=== PATIENT | female | born 1940 | race Caucasian/White ===

== ENCOUNTER 2019-12-26 01:35 | Inpatient (IN) ==
[2019-12-26] MEDS ORDERED: Naloxone 0.4 MG/ML INJ IVP PRN (04:05)
[2019-12-26] MEDS ORDERED: Perflutren Lipid Microsphere 1.3 ML in 0.9 % Sodium Chloride 8.7 ML IVP PRN (05:13)
[2019-12-26] MEDS ORDERED: Doxycycline 100 MG in 0.9 % Sodium Chloride Mini Bag 100 ML IVPB SCH (06:00)
[2019-12-26] MEDS ORDERED: Ondansetron ODT 4 MG TAB.RAPDIS SL PRN (06:06)
[2019-12-26] MEDS ORDERED: Acetaminophen 325 MG TABLET PO PRN (06:06)
[2019-12-26 06:53] LABS: INR 1.7; Prothrombin Time 19.1 Seconds (9.4-12.1)
[2019-12-26 07:13] LABS: Basophils % 0.2 %; Hematocrit 35.2 % (35.3-44.9); Hemoglobin 11.5 g/dL (11.5-15.4); Immature Granulocytes % 0.5 % (0-4); Lymphocytes # 0.6 K/mcL (0.6-4.6); Mean Corpuscular HGB Conc 32.7 g/dL (31.6-35.5); Mean Corpuscular Hemoglobin 35.2 pg (28.0-33.3); Mean Corpuscular Volume 107.6 fL (83.0-100.0); Mean Platelet Volume 9.3 fL (9.4-12.4); Monocytes # 2.2 K/mcL (0.0-1.3); Monocytes % 13.8 %; Neutrophils # 13.2 K/mcL (1.6-8.9); Platelet Count 408 K/mcL (140-400); Red Blood Count 3.27 M/mcL (3.82-4.97); Red Cell Distribution Width 12.4 % (11.5-14.5); Segmented Neutrophils % 81.5 %; White Blood Count 16.1 K/mcL (4.3-11.1)
[2019-12-26 07:37] LABS: Calcium 8.4 mg/dL (8.6-10.3); Potassium 4.6 mEq/L (3.5-5.1)
[2019-12-26] MEDS: Metoprolol 100 MG TABLET PO SCH ×2 (07:54→19:23)
[2019-12-26] MEDS: Famotidine 20 MG TABLET PO SCH ×2 (07:54→19:23)
[2019-12-26] MEDS ORDERED: cefTRIAXone 1,000 MG in Water for inj. (sterile) 10 ML IVP SCH (09:00)
[2019-12-26] MEDS ORDERED: Ringers Solution, Lactated 500 ML IVC ONE ×2 (12:30→13:00)
[2019-12-26] MEDS: Ipratropium/Albuterol Neb 3 ML IH SCH ×4 (15:29→23:58)
[2019-12-26] MEDS: Piperacillin/Tazobactam 3.375 GM in 0.9 % Sodium Chloride Mini Bag 100 ML IVPB SCH (16:35)
[2019-12-26] MEDS ORDERED: *HR* Rivaroxaban 10 MG TABLET PO SCH (17:00)
[2019-12-26 17:08] LABS: Bilirubin,Urine Negative (Negative); Blood,Urine Negative (Negative); Clarity,Urine Clear (Clear); Color,Urine Yellow (Yellow); Glucose,Urine (UA) Normal (Normal); Hyaline Casts,Urine Few per lpf (None Seen); Ketones,Urine Negative (Negative); Leukocyte Esterase,Urine Trace (Negative); Nitrite,Urine Negative (Negative); Protein,Urine Trace mg/dL (Neg-Trace); RBC,Urine 0-3 per hpf (0-3); Specific Gravity,Urine 1.015 (1.010-1.025); Squamous Epithelial Cell,Urine Few per hpf (None-Few); Urobilinogen,Urine Normal (Normal)
[2019-12-26] MEDS ORDERED: Mirtazapine 15 MG TABLET PO SCH ×2 (21:00)
[2019-12-27] MEDS: Piperacillin/Tazobactam 3.375 GM in 0.9 % Sodium Chloride Mini Bag 100 ML IVPB SCH ×3 (00:21→21:53)
[2019-12-27] MEDS: Ipratropium/Albuterol Neb 3 ML IH SCH ×3 (04:17→11:34)
[2019-12-27] MEDS ORDERED: *HR* Propofol 200 MG/20 ML VIAL IVP ONE (08:43)
[2019-12-27] MEDS ORDERED: Dexamethasone 4 MG/ML VIAL ONE (08:43)
[2019-12-27] MEDS ORDERED: Lidocaine -MPF 4% 5 ML AMPUL ONE (08:43)
[2019-12-27] MEDS ORDERED: *HR* FentaNYL (PF) 100 MCG/2 ML VIAL ONE (08:43)
[2019-12-27] MEDS ORDERED: Lidocaine -MPF 2% 2 ML VIAL ONE (08:43)
[2019-12-27] MEDS ORDERED: *HR* Rocuronium Bromide 50 MG/5 ML VIAL ONE (08:43)
[2019-12-27] MEDS ORDERED: Ondansetron 4 MG/2 ML VIAL ONE (08:43)
[2019-12-27] MEDS: Famotidine 20 MG TABLET PO SCH ×2 (08:46→19:51)
[2019-12-27] MEDS: Metoprolol 100 MG TABLET PO SCH ×2 (08:46→19:51)
[2019-12-27] MEDS ORDERED: *HR* Vasopressin 20 UNIT/ML VIAL ONE (09:19)
[2019-12-27] MEDS ORDERED: EPHEDrine 50 MG/ML VIAL ONE (09:22)
[2019-12-27] MEDS ORDERED: Albumin Human 5% 12.5 GM/250 ML IV.SOLN ONE ×3 (09:53→13:25)
[2019-12-27] MEDS ORDERED: Famotidine 20 MG/2 ML VIAL ONE (09:58)
[2019-12-27] MEDS ORDERED: Acetaminophen IV 1,000 MG/100 ML INFUS..BTL ONE (09:58)
[2019-12-27] MEDS ORDERED: Lacri-Lube 3.5 GM TUBE ONE (10:01)
[2019-12-27] MEDS ORDERED: *HR* PHENYLEPHRINE 1,000 MCG/10 ML SYRINGE IVP ONE ×3 (10:09→10:47)
[2019-12-27] MEDS ORDERED: Promethazine 6.25 MG in Water for inj. (sterile) 20 ML IVPB PRN (10:23)
[2019-12-27] MEDS ORDERED: *HR* Labetalol 20 MG/4 ML SYRINGE IVP PRN (10:23)
[2019-12-27] MEDS ORDERED: *HR* HYDROmorphone 2 MG TABLET PO PRN (10:23)
[2019-12-27] MEDS ORDERED: Pregabalin 75 MG CAPSULE PO ONE ×2 (10:23→13:04)
[2019-12-27] MEDS: *HR* HYDROmorphone (PF) 1 MG/ML SYRINGE IVP PRN ×3 (11:42→12:10)
[2019-12-27] MEDS: *HR* OxyCODONE Immed Rel 5 MG TABLET PO PRN ×2 (12:07→12:16)
[2019-12-27] MEDS ORDERED: *HR* HYDROcodone/Acet 5/325 mg TABLET PO PRN (13:04)
[2019-12-27] MEDS ORDERED: Perflutren Lipid Microsphere 1.3 ML in 0.9 % Sodium Chloride 8.7 ML IVP PRN (13:04)
[2019-12-27] MEDS ORDERED: Acetaminophen 325 MG TABLET PO PRN (13:04)
[2019-12-27] MEDS ORDERED: 0.9 % Sodium Chloride 1,000 ML IVC SCH ×2 (13:04→17:23)
[2019-12-27] MEDS ORDERED: Naloxone 0.4 MG/ML INJ IVP PRN (13:04)
[2019-12-27] MEDS ORDERED: Ondansetron 4 MG/2 ML VIAL IVP PRN (13:04)
[2019-12-27] MEDS: *HR* Heparin 5,000 UNIT/ML VIAL SQ SCH ×2 (13:28→21:54)
[2019-12-27] MEDS: Albumin Human 5% 12.5 GM/250 ML IV.SOLN IVC SCH ×3 (13:35→15:38)
[2019-12-27] MEDS: Gabapentin 300 MG CAPSULE PO SCH ×2 (15:57→19:52)
[2019-12-27 19:51] LABS: Hematocrit 32.3 % (35.3-44.9); Hemoglobin 10.2 g/dL (11.5-15.4); Mean Corpuscular HGB Conc 31.6 g/dL (31.6-35.5); Mean Corpuscular Hemoglobin 35.4 pg (28.0-33.3); Mean Corpuscular Volume 112.2 fL (83.0-100.0); Mean Platelet Volume 9.4 fL (9.4-12.4); Platelet Count 361 K/mcL (140-400); Red Blood Count 2.88 M/mcL (3.82-4.97); Red Cell Distribution Width 12.7 % (11.5-14.5); White Blood Count 11.9 K/mcL (4.3-11.1)
[2019-12-27] MEDS: Sennosides/Docusate Sodium TABLET PO SCH (19:51)
[2019-12-27] MEDS: *HR* Amiodarone 200 MG TABLET PO SCH ×2 (19:52)
[2019-12-27] MEDS ORDERED: Mirtazapine 15 MG TABLET PO SCH (21:00)
[2019-12-28] MEDS: *HR* Heparin 5,000 UNIT/ML VIAL SQ SCH ×3 (06:00→21:58)
[2019-12-28] MEDS: Piperacillin/Tazobactam 3.375 GM in 0.9 % Sodium Chloride Mini Bag 100 ML IVPB SCH ×3 (06:00→21:58)
[2019-12-28 06:30] LABS: Hematocrit 32.5 % (35.3-44.9); Hemoglobin 10.2 g/dL (11.5-15.4); Mean Corpuscular HGB Conc 31.4 g/dL (31.6-35.5); Mean Corpuscular Hemoglobin 35.9 pg (28.0-33.3); Mean Corpuscular Volume 114.4 fL (83.0-100.0); Mean Platelet Volume 9.7 fL (9.4-12.4); Platelet Count 333 K/mcL (140-400); Red Blood Count 2.84 M/mcL (3.82-4.97); Red Cell Distribution Width 12.7 % (11.5-14.5); White Blood Count 10.9 K/mcL (4.3-11.1)
[2019-12-28 06:52] LABS: BUN/Creatinine Ratio 21 (6-26); Blood Urea Nitrogen 19 mg/dL (8-23); Calcium 8.1 mg/dL (8.6-10.3); Carbon Dioxide 21 mEq/L (23-29); Chloride 108 mEq/L (98-107); Glucose 132 mg/dL (70-105); Magnesium 1.9 mg/dL (1.6-2.6); Osmolality,Calculated 290 (280-300); Potassium 4.4 mEq/L (3.5-5.1); Sodium 138 mEq/L (136-145); eGFR For African Americans > 60 (> 60); eGFR For Non-African Americans 59 (> 60)
[2019-12-28] MEDS: Sennosides/Docusate Sodium TABLET PO SCH ×2 (08:36→20:10)
[2019-12-28] MEDS: *HR* Amiodarone 200 MG TABLET PO SCH ×2 (08:36→20:10)
[2019-12-28] MEDS: Gabapentin 300 MG CAPSULE PO SCH ×4 (08:36→20:10)
[2019-12-28] MEDS: Famotidine 20 MG TABLET PO SCH (08:37)
[2019-12-28] MEDS ORDERED: Multivit/Ca/Min/Fe/FA 1 TAB TABLET PO SCH (09:00)
[2019-12-28] MEDS: Metoprolol 100 MG TABLET PO SCH ×2 (09:32→20:10)
[2019-12-28] MEDS ORDERED: Perflutren Lipid Microsphere 1.3 ML in 0.9 % Sodium Chloride 8.7 ML IVP PRN (14:53)
[2019-12-28] MEDS ORDERED: Ondansetron 4 MG/2 ML VIAL IVP PRN (14:53)
[2019-12-28] MEDS ORDERED: Naloxone 0.4 MG/ML INJ IVP PRN (14:53)
[2019-12-28] MEDS ORDERED: Acetaminophen 325 MG TABLET PO PRN (14:53)
[2019-12-28] MEDS: *HR* HYDROcodone/Acet 5/325 mg TABLET PO PRN ×2 (16:16→22:59)
[2019-12-28] MEDS: Mirtazapine 15 MG TABLET PO SCH (20:10)
[2019-12-28] MEDS ORDERED: Famotidine 20 MG TABLET PO SCH (21:00)
[2019-12-29] MEDS: Piperacillin/Tazobactam 3.375 GM in 0.9 % Sodium Chloride Mini Bag 100 ML IVPB SCH (05:30)
[2019-12-29] MEDS: *HR* Heparin 5,000 UNIT/ML VIAL SQ SCH ×2 (05:30→14:34)
[2019-12-29] MEDS: Multivit/Ca/Min/Fe/FA 1 TAB TABLET PO SCH (09:16)
[2019-12-29] MEDS: *HR* Amiodarone 200 MG TABLET PO SCH ×2 (09:16→20:25)
[2019-12-29] MEDS: Famotidine 20 MG TABLET PO SCH (09:16)
[2019-12-29] MEDS: Gabapentin 300 MG CAPSULE PO SCH ×3 (09:16→20:26)
[2019-12-29] MEDS: Metoprolol 100 MG TABLET PO SCH (09:17)
[2019-12-29] MEDS: Sennosides/Docusate Sodium TABLET PO SCH ×2 (09:17→20:25)
[2019-12-29] MEDS: Furosemide 20 MG/2 ML VIAL IVP SCH (10:27)
[2019-12-29] MEDS: Mirtazapine 15 MG TABLET PO SCH (20:26)
[2019-12-29] MEDS ORDERED: *HR* Rivaroxaban 15 MG TABLET PO SCH (21:00)
[2019-12-29] MEDS: *HR* HYDROcodone/Acet 5/325 mg TABLET PO PRN (21:15)
[2019-12-30] MEDS: Sennosides/Docusate Sodium TABLET PO SCH ×2 (08:31→21:27)
[2019-12-30] MEDS: *HR* Amiodarone 200 MG TABLET PO SCH (08:31)
[2019-12-30] MEDS: Furosemide 20 MG/2 ML VIAL IVP SCH (08:31)
[2019-12-30] MEDS: Famotidine 20 MG TABLET PO SCH (08:32)
[2019-12-30] MEDS: Multivit/Ca/Min/Fe/FA 1 TAB TABLET PO SCH (08:32)
[2019-12-30] MEDS: Gabapentin 300 MG CAPSULE PO SCH ×3 (08:32→21:27)
[2019-12-30] MEDS: *HR* HYDROcodone/Acet 5/325 mg TABLET PO PRN ×3 (08:51→21:31)
[2019-12-30] MEDS ORDERED: *HR* Amiodarone 200 MG TABLET PO SCH ×2 (09:00→21:00)
[2019-12-30] MEDS ORDERED: Ondansetron 4 MG/2 ML VIAL IVP PRN (09:51)
[2019-12-30] MEDS ORDERED: Acetaminophen 325 MG TABLET PO PRN (09:51)
[2019-12-30] MEDS ORDERED: Naloxone 0.4 MG/ML INJ IVP PRN (09:51)
[2019-12-30] MEDS: *HR* Rivaroxaban 15 MG TABLET PO SCH (18:06)
[2019-12-30] MEDS: Mirtazapine 15 MG TABLET PO SCH (21:27)
[2019-12-31 05:49] LABS: Hematocrit 33.3 % (35.3-44.9); Hemoglobin 10.5 g/dL (11.5-15.4); Mean Corpuscular HGB Conc 31.5 g/dL (31.6-35.5); Mean Corpuscular Hemoglobin 34.3 pg (28.0-33.3); Mean Corpuscular Volume 108.8 fL (83.0-100.0); Platelet Count 414 K/mcL (140-400); Red Blood Count 3.06 M/mcL (3.82-4.97); Red Cell Distribution Width 12.5 % (11.5-14.5); White Blood Count 11.5 K/mcL (4.3-11.1)
[2019-12-31 06:09] LABS: % Iron Saturation 28 % (15-50); BUN/Creatinine Ratio 33 (6-26); Blood Urea Nitrogen 32 mg/dL (8-23); Calcium 8.3 mg/dL (8.6-10.3); Carbon Dioxide 23 mEq/L (23-29); Chloride 108 mEq/L (98-107); Glucose 91 mg/dL (70-105); Iron 56 mcg/dL (50-170); Magnesium 2.3 mg/dL (1.6-2.6); Osmolality,Calculated 292 (280-300); Potassium 4.2 mEq/L (3.5-5.1); Sodium 138 mEq/L (136-145); Transferrin 142 mg/dL (203-362); eGFR For African Americans > 60 (> 60); eGFR For Non-African Americans 55 (> 60)
[2019-12-31] MEDS ORDERED: Furosemide 20 MG TABLET PO PRN (08:51)
[2019-12-31] MEDS: Sennosides/Docusate Sodium TABLET PO SCH ×2 (08:56→20:24)
[2019-12-31] MEDS: Multivit/Ca/Min/Fe/FA 1 TAB TABLET PO SCH (08:56)
[2019-12-31] MEDS: Famotidine 20 MG TABLET PO SCH (08:56)
[2019-12-31] MEDS: *HR* Amiodarone 200 MG TABLET PO SCH (08:57)
[2019-12-31] MEDS: Gabapentin 300 MG CAPSULE PO SCH ×3 (08:57→20:25)
[2019-12-31] MEDS ORDERED: Furosemide 20 MG/2 ML VIAL IVP SCH (09:00)
[2019-12-31] MEDS: *HR* HYDROcodone/Acet 5/325 mg TABLET PO PRN ×3 (10:18→22:21)
[2019-12-31] MEDS: *HR* Rivaroxaban 15 MG TABLET PO SCH (17:56)
[2019-12-31] MEDS: Mirtazapine 15 MG TABLET PO SCH (20:25)
[2020-01-01] MEDS: *HR* HYDROcodone/Acet 5/325 mg TABLET PO PRN ×2 (05:11→09:47)
[2020-01-01] MEDS: Famotidine 20 MG TABLET PO SCH (08:35)
[2020-01-01] MEDS: Multivit/Ca/Min/Fe/FA 1 TAB TABLET PO SCH (08:36)
[2020-01-01] MEDS: *HR* Amiodarone 200 MG TABLET PO SCH (08:36)
[2020-01-01] MEDS: Gabapentin 300 MG CAPSULE PO SCH ×3 (08:36→21:12)
[2020-01-01] MEDS: Sennosides/Docusate Sodium TABLET PO SCH ×2 (08:36→21:12)
[2020-01-01] MEDS: *HR* Rivaroxaban 15 MG TABLET PO SCH (16:50)
[2020-01-01] MEDS: Mirtazapine 15 MG TABLET PO SCH (21:12)
[2020-01-02 06:21] LABS: Hematocrit 32.3 % (35.3-44.9); Hemoglobin 10.3 g/dL (11.5-15.4); Mean Corpuscular HGB Conc 31.9 g/dL (31.6-35.5); Mean Corpuscular Volume 109.9 fL (83.0-100.0); Mean Platelet Volume 9.8 fL (9.4-12.4); Platelet Count 424 K/mcL (140-400); Red Blood Count 2.94 M/mcL (3.82-4.97); Red Cell Distribution Width 12.9 % (11.5-14.5); White Blood Count 16.5 K/mcL (4.3-11.1)
[2020-01-02 06:38] LABS: BUN/Creatinine Ratio 30 (6-26); Blood Urea Nitrogen 21 mg/dL (8-23); Calcium 8.5 mg/dL (8.6-10.3); Carbon Dioxide 24 mEq/L (23-29); Chloride 111 mEq/L (98-107); Glucose 89 mg/dL (70-105); Magnesium 2.1 mg/dL (1.6-2.6); Osmolality,Calculated 290 (280-300); Sodium 139 mEq/L (136-145); eGFR For African Americans > 60 (> 60); eGFR For Non-African Americans > 60 (> 60)
[2020-01-02] MEDS: Sennosides/Docusate Sodium TABLET PO SCH ×2 (09:51→20:15)
[2020-01-02] MEDS: Multivit/Ca/Min/Fe/FA 1 TAB TABLET PO SCH (09:51)
[2020-01-02] MEDS: Famotidine 20 MG TABLET PO SCH (09:51)
[2020-01-02] MEDS: *HR* HYDROcodone/Acet 5/325 mg TABLET PO PRN ×2 (09:52→21:54)
[2020-01-02] MEDS: *HR* Amiodarone 200 MG TABLET PO SCH (09:52)
[2020-01-02] MEDS: Gabapentin 300 MG CAPSULE PO SCH ×3 (09:52→23:22)
[2020-01-02] MEDS ORDERED: TALC IX ONE ×2 (12:00→14:45)
[2020-01-02] MEDS ORDERED: SODIUM CHLORIDE IX ONE ×2 (12:00→14:45)
[2020-01-02] MEDS ORDERED: *HR* HYDROmorphone (PF) 1 MG/ML SYRINGE IVP PRN (14:12)
[2020-01-02] MEDS ORDERED: Talc (sterile) 4 GM, 0.9 % Sodium Chloride 50 ML, Syringe LUER-LOK 1 EACH IX ONE (14:38)
[2020-01-02] MEDS ORDERED: *HR* Rivaroxaban 10 MG TABLET PO SCH (17:00)
[2020-01-02] MEDS: Mirtazapine 15 MG TABLET PO SCH (20:15)
[2020-01-03] MEDS: Famotidine 20 MG TABLET PO SCH (08:30)
[2020-01-03] MEDS: *HR* Amiodarone 200 MG TABLET PO SCH (08:30)
[2020-01-03] MEDS: Multivit/Ca/Min/Fe/FA 1 TAB TABLET PO SCH (08:30)
[2020-01-03] MEDS: Sennosides/Docusate Sodium TABLET PO SCH ×2 (08:32→20:16)
[2020-01-03] MEDS: Gabapentin 300 MG CAPSULE PO SCH ×3 (09:20→20:16)
[2020-01-03] MEDS ORDERED: Naloxone 0.4 MG/ML INJ IVP PRN (09:59)
[2020-01-03] MEDS ORDERED: Furosemide 20 MG TABLET PO PRN (09:59)
[2020-01-03] MEDS ORDERED: Acetaminophen 325 MG TABLET PO PRN (09:59)
[2020-01-03] MEDS ORDERED: Talc (sterile) 4 GM, 0.9 % Sodium Chloride 50 ML, Syringe LUER-LOK 1 EACH IX ONE (09:59)
[2020-01-03] MEDS ORDERED: *HR* HYDROmorphone (PF) 1 MG/ML SYRINGE IVP PRN (09:59)
[2020-01-03] MEDS ORDERED: Ondansetron 4 MG/2 ML VIAL IVP PRN (09:59)
[2020-01-03] MEDS: *HR* HYDROcodone/Acet 5/325 mg TABLET PO PRN ×2 (11:50→21:24)
[2020-01-03] MEDS: *HR* Rivaroxaban 10 MG TABLET PO SCH (17:08)
[2020-01-03] MEDS: Mirtazapine 15 MG TABLET PO SCH (20:16)
[2020-01-04 05:43] LABS: Hematocrit 29.8 % (35.3-44.9); Hemoglobin 9.5 g/dL (11.5-15.4); Mean Corpuscular HGB Conc 31.9 g/dL (31.6-35.5); Mean Corpuscular Hemoglobin 35.3 pg (28.0-33.3); Mean Corpuscular Volume 110.8 fL (83.0-100.0); Mean Platelet Volume 9.8 fL (9.4-12.4); Platelet Count 404 K/mcL (140-400); Red Blood Count 2.69 M/mcL (3.82-4.97); Red Cell Distribution Width 13.5 % (11.5-14.5); White Blood Count 14.6 K/mcL (4.3-11.1)
[2020-01-04 06:31] LABS: BUN/Creatinine Ratio 25 (6-26); Blood Urea Nitrogen 20 mg/dL (8-23); Calcium 8.6 mg/dL (8.6-10.3); Carbon Dioxide 27 mEq/L (23-29); Chloride 108 mEq/L (98-107); Glucose 100 mg/dL (70-105); Magnesium 2.2 mg/dL (1.6-2.6); Osmolality,Calculated 291 (280-300); Potassium 5.1 mEq/L (3.5-5.1); Sodium 139 mEq/L (136-145); eGFR For African Americans > 60 (> 60); eGFR For Non-African Americans > 60 (> 60)
[2020-01-04] MEDS: Famotidine 20 MG TABLET PO SCH (07:45)
[2020-01-04] MEDS: Sennosides/Docusate Sodium TABLET PO SCH ×2 (07:46→20:17)
[2020-01-04] MEDS: *HR* Amiodarone 200 MG TABLET PO SCH (07:46)
[2020-01-04] MEDS: Multivit/Ca/Min/Fe/FA 1 TAB TABLET PO SCH (07:46)
[2020-01-04] MEDS: Gabapentin 300 MG CAPSULE PO SCH ×3 (07:46→20:17)
[2020-01-04] MEDS ORDERED: SODIUM CHLORIDE IX ONE (12:30)
[2020-01-04] MEDS ORDERED: TALC IX ONE (12:30)
[2020-01-04] MEDS: Furosemide 40 MG TABLET PO SCH (12:59)
[2020-01-04] MEDS: *HR* Rivaroxaban 10 MG TABLET PO SCH (16:00)
[2020-01-04] MEDS: Mirtazapine 15 MG TABLET PO SCH (20:17)
[2020-01-04] MEDS: *HR* HYDROcodone/Acet 5/325 mg TABLET PO PRN (20:18)
[2020-01-05] MEDS: Multivit/Ca/Min/Fe/FA 1 TAB TABLET PO SCH (08:34)
[2020-01-05] MEDS: *HR* Amiodarone 200 MG TABLET PO SCH (08:35)
[2020-01-05] MEDS: Famotidine 20 MG TABLET PO SCH (08:35)
[2020-01-05] MEDS: Sennosides/Docusate Sodium TABLET PO SCH ×2 (08:35→19:40)
[2020-01-05] MEDS: Gabapentin 300 MG CAPSULE PO SCH ×3 (08:35→19:40)
[2020-01-05] MEDS: Furosemide 40 MG TABLET PO SCH (08:35)
[2020-01-05] MEDS: *HR* Rivaroxaban 10 MG TABLET PO SCH (17:28)
[2020-01-05] MEDS: Mirtazapine 15 MG TABLET PO SCH (19:41)
[2020-01-05] MEDS: *HR* HYDROcodone/Acet 5/325 mg TABLET PO PRN (22:27)
[2020-01-06 06:26] LABS: Hematocrit 28.4 % (35.3-44.9); Hemoglobin 9.3 g/dL (11.5-15.4); Mean Corpuscular HGB Conc 32.7 g/dL (31.6-35.5); Mean Corpuscular Hemoglobin 35.9 pg (28.0-33.3); Mean Corpuscular Volume 109.7 fL (83.0-100.0); Mean Platelet Volume 9.4 fL (9.4-12.4); Platelet Count 380 K/mcL (140-400); Red Blood Count 2.59 M/mcL (3.82-4.97); Red Cell Distribution Width 13.8 % (11.5-14.5); White Blood Count 13.9 K/mcL (4.3-11.1)
[2020-01-06 06:45] LABS: BUN/Creatinine Ratio 23 (6-26); Blood Urea Nitrogen 22 mg/dL (8-23); Calcium 8.8 mg/dL (8.6-10.3); Carbon Dioxide 29 mEq/L (23-29); Chloride 107 mEq/L (98-107); Glucose 98 mg/dL (70-105); Magnesium 2.1 mg/dL (1.6-2.6); Osmolality,Calculated 291 (280-300); Potassium 4.5 mEq/L (3.5-5.1); Sodium 139 mEq/L (136-145); eGFR For African Americans > 60 (> 60); eGFR For Non-African Americans 58 (> 60)
[2020-01-06] MEDS: Multivit/Ca/Min/Fe/FA 1 TAB TABLET PO SCH (08:26)
[2020-01-06] MEDS: *HR* Amiodarone 200 MG TABLET PO SCH (08:26)
[2020-01-06] MEDS: Famotidine 20 MG TABLET PO SCH (08:26)
[2020-01-06] MEDS: Furosemide 40 MG TABLET PO SCH (08:26)
[2020-01-06] MEDS: Gabapentin 300 MG CAPSULE PO SCH (08:26)
[2020-01-06] MEDS: Sennosides/Docusate Sodium TABLET PO SCH (08:26)
[2020-01-06 10:31] VITALS: BP 95/69
[2020-01-06] MEDS: *HR* HYDROcodone/Acet 5/325 mg TABLET PO PRN (11:12)
== END 2020-01-06 13:10 | disposition home or self-care (01) | DRG 163 ==
LOC: 2NNU → ICNU 12-27 13:02 → 2NNU 01-03 14:52
PROVIDERS: ADMIT Student in an Organized Health Care Education/Training Program; ATTEND Student in an Organized Health Care Education/Training Program

== ENCOUNTER 2020-01-10 12:50 | Inpatient (IN) ==
[2020-01-10 13:34] LABS: Basophils # 0.1 K/mcL (0.0-0.2); Basophils % 0.6 %; Eosinophils # 0.1 K/mcL (0.0-0.6); Eosinophils % 0.6 %; Hemoglobin 9.3 g/dL (11.5-15.4); Immature Granulocytes % 1.2 % (0-4); Lymphocytes # 0.7 K/mcL (0.6-4.6); Lymphocytes % 4.5 %; Mean Corpuscular Hemoglobin 34.3 pg (28.0-33.3); Mean Corpuscular Volume 110.7 fL (83.0-100.0); Mean Platelet Volume 9.4 fL (9.4-12.4); Monocytes % 6.7 %; Neutrophils # 13.2 K/mcL (1.6-8.9); Platelet Count 436 K/mcL (140-400); Red Blood Count 2.71 M/mcL (3.82-4.97); Red Cell Distribution Width 14.4 % (11.5-14.5); Segmented Neutrophils % 86.4 %; White Blood Count 15.3 K/mcL (4.3-11.1)
[2020-01-10 13:55] LABS: BUN/Creatinine Ratio 12 (6-26); Blood Urea Nitrogen 15 mg/dL (8-23); Calcium 9.3 mg/dL (8.6-10.3); Carbon Dioxide 25 mEq/L (23-29); Chloride 103 mEq/L (98-107); Glucose 106 mg/dL (70-105); Osmolality,Calculated 287 (280-300); Potassium 4.7 mEq/L (3.5-5.1); Sodium 138 mEq/L (136-145); eGFR For African Americans 52 (> 60); eGFR For Non-African Americans 43 (> 60)
[2020-01-10 13:59] LABS: Anisocytosis 1+ (Not Present); Macrocytosis Present (Not Present); Platelet Estimate Normal (Normal)
[2020-01-10 14:05] LABS: Troponin I < 0.03 ng/mL (< 0.04)
[2020-01-10 14:05] LABS: VBG HCO3 24 mEq/L (21-27); VBG PCO2 37 mmHg (41-51); VBG PH 7.43 pH Units (7.32-7.42); VBG PO2 85 mmHg (25-50)
[2020-01-10 14:06] LABS: Alanine Aminotransferase 19 Units/L (7-52); Albumin 3.7 g/dL (3.5-5.7); Albumin/Globulin Ratio 1.2 (1.1-2.2); Alkaline Phosphatase 110 Units/L (34-104); Aspartate Amino Transferase 23 Units/L (13-39); Bilirubin,Direct 0.3 mg/dL (0.0-0.2); Bilirubin,Total 1.3 mg/dL (0.3-1.0); Lipase 20 Units/L (11-82); Magnesium 2.1 mg/dL (1.6-2.6); Total Protein 6.7 g/dL (6.4-8.9)
[2020-01-10 14:12] LABS: Bilirubin,Urine Negative (Negative); Blood,Urine Negative (Negative); Clarity,Urine Clear (Clear); Color,Urine Light-Yellow (Yellow); Glucose,Urine (UA) Normal (Normal); Ketones,Urine Negative (Negative); Leukocyte Esterase,Urine Negative (Negative); Nitrite,Urine Negative (Negative); PH,Urine 6.5 pH Units (5.0-8.0); Protein,Urine Negative (Neg-Trace); Specific Gravity,Urine 1.008 (1.010-1.025); Urobilinogen,Urine Normal (Normal)
[2020-01-10] MEDS ORDERED: 0.9 % Sodium Chloride 1,000 ML IVC ONE (14:19)
[2020-01-10] MEDS ORDERED: Cefepime HCl 1,000 MG in Water for inj. (sterile) 10 ML IVP ONE (15:45)
[2020-01-10] MEDS ORDERED: Azithromycin 500 MG in 0.9 % Sodium Chloride 250 ML IVPB ONE (16:00)
[2020-01-10] MEDS ORDERED: Mag Hydrox/Al Hydrox/Simeth 30 ML UDC PO PRN (16:10)
[2020-01-10] MEDS ORDERED: Acetaminophen 325 MG TABLET PO PRN (16:10)
[2020-01-10] MEDS ORDERED: Naloxone 0.4 MG/ML INJ IVP PRN (16:10)
[2020-01-10] MEDS ORDERED: *HR* HYDROcodone/Acet 5/325 mg TABLET PO PRN (16:10)
[2020-01-10] MEDS ORDERED: MOM Conc 10 ML UD.LIQ PO PRN (16:10)
[2020-01-10] MEDS ORDERED: Ondansetron 4 MG/2 ML VIAL IVP PRN (16:10)
[2020-01-10 18:37] LABS: Adenovirus Not Detected (Not Detect); Bordetella Pertussis Not Detected (Not Detect); Chlamydophila pneumoniae Not Detected (Not Detect); Coronavirus 229E Not Detected (Not Detect); Coronavirus HKU1 Not Detected (Not Detect); Coronavirus NL63 Not Detected (Not Detect); Coronavirus OC43 Not Detected (Not Detect); Human Metapneumovirus Not Detected (Not Detect); Human Rhinovirus/Enterovirus Not Detected (Not Detect); Influenza A Subtype 2009 H1 Not Detected (Not Detect); Influenza B Not Detected (Not Detect); Mycoplasma pneumoniae Not Detected (Not Detect); Parainfluenza Virus 1 Not Detected (Not Detect); Parainfluenza Virus 2 Not Detected (Not Detect); Parainfluenza Virus 3 Not Detected (Not Detect); Parainfluenza Virus 4 Not Detected (Not Detect); Respiratory Syncytial Virus Not Detected (Not Detect)
[2020-01-10] MEDS ORDERED: hydrOXYzine pamoate 25 MG CAPSULE PO ONE (22:23)
[2020-01-10] MEDS: Cefepime HCl 1,000 MG in 0.9 % Sodium Chloride Mini Bag 100 ML IVPB SCH (23:35)
[2020-01-11 02:55] LABS: Hematocrit 26.5 % (35.3-44.9); Hemoglobin 8.4 g/dL (11.5-15.4); Mean Corpuscular HGB Conc 31.7 g/dL (31.6-35.5); Mean Corpuscular Hemoglobin 34.3 pg (28.0-33.3); Mean Corpuscular Volume 108.2 fL (83.0-100.0); Mean Platelet Volume 9.4 fL (9.4-12.4); Platelet Count 374 K/mcL (140-400); Red Blood Count 2.45 M/mcL (3.82-4.97); Red Cell Distribution Width 14.2 % (11.5-14.5); White Blood Count 12.9 K/mcL (4.3-11.1)
[2020-01-11 03:11] LABS: BUN/Creatinine Ratio 15 (6-26); Blood Urea Nitrogen 15 mg/dL (8-23); Calcium 8.5 mg/dL (8.6-10.3); Carbon Dioxide 22 mEq/L (23-29); Chloride 106 mEq/L (98-107); Glucose 88 mg/dL (70-105); Osmolality,Calculated 286 (280-300); Phosphorous 3.1 mg/dL (2.7-4.5); Potassium 4.2 mEq/L (3.5-5.1); Sodium 138 mEq/L (136-145); eGFR For African Americans > 60 (> 60); eGFR For Non-African Americans 54 (> 60)
[2020-01-11 03:28] LABS: Thyroid Stimulating Hormone 3.176 mcIU/mL (0.340-5.600)
[2020-01-11 03:39] LABS: Folate > 22.3 ng/mL (3.0-16.0); Vitamin B12 572 pg/mL (250-1100)
[2020-01-11] MEDS ORDERED: Vancomycin 500 MG in 0.9 % Sodium Chloride Mini Bag 100 ML IVPB SCH (04:00)
[2020-01-11 04:28] LABS: Vitamin D 25 Hydroxy 19 ng/mL (30-80)
[2020-01-11] MEDS ORDERED: *HR* Metoprolol 5 MG/5 ML VIAL IVP ONE (09:20)
[2020-01-11] MEDS: Cefepime HCl 1,000 MG in 0.9 % Sodium Chloride Mini Bag 100 ML IVPB SCH ×2 (09:24→16:46)
[2020-01-11] MEDS: Cholecalciferol (D-3) 1,000 UNIT (25MCG) TABLET PO SCH (09:24)
[2020-01-11] MEDS: *HR* Amiodarone 200 MG TABLET PO SCH (10:05)
[2020-01-11] MEDS: *HR* Rivaroxaban 10 MG TABLET PO SCH (16:46)
[2020-01-11] MEDS: Mirtazapine 15 MG TABLET PO SCH (20:26)
[2020-01-12] MEDS: Cefepime HCl 1,000 MG in 0.9 % Sodium Chloride Mini Bag 100 ML IVPB SCH ×2 (00:07→08:45)
[2020-01-12 03:02] LABS: Basophils # 0.1 K/mcL (0.0-0.2); Basophils % 0.8 %; Eosinophils # 0.1 K/mcL (0.0-0.6); Eosinophils % 0.9 %; Hematocrit 27.7 % (35.3-44.9); Hemoglobin 8.7 g/dL (11.5-15.4); Immature Granulocytes % 0.4 % (0-4); Lymphocytes # 0.7 K/mcL (0.6-4.6); Lymphocytes % 6.3 %; Mean Corpuscular HGB Conc 31.4 g/dL (31.6-35.5); Mean Corpuscular Hemoglobin 34.1 pg (28.0-33.3); Mean Corpuscular Volume 108.6 fL (83.0-100.0); Mean Platelet Volume 9.4 fL (9.4-12.4); Monocytes # 1.1 K/mcL (0.0-1.3); Monocytes % 9.4 %; Neutrophils # 9.4 K/mcL (1.6-8.9); Platelet Count 362 K/mcL (140-400); Red Blood Count 2.55 M/mcL (3.82-4.97); Red Cell Distribution Width 14.5 % (11.5-14.5); Segmented Neutrophils % 82.2 %; White Blood Count 11.5 K/mcL (4.3-11.1)
[2020-01-12 03:25] LABS: % Iron Saturation 17 % (15-50); BUN/Creatinine Ratio 16 (6-26); Blood Urea Nitrogen 14 mg/dL (8-23); Calcium 8.6 mg/dL (8.6-10.3); Carbon Dioxide 23 mEq/L (23-29); Chloride 107 mEq/L (98-107); Glucose 101 mg/dL (70-105); Iron 50 mcg/dL (50-170); Osmolality,Calculated 291 (280-300); Potassium 3.7 mEq/L (3.5-5.1); Sodium 140 mEq/L (136-145); Transferrin 214 mg/dL (203-362); eGFR For African Americans > 60 (> 60); eGFR For Non-African Americans > 60 (> 60)
[2020-01-12 03:38] LABS: Ferritin 264 ng/mL (10-120)
[2020-01-12] MEDS: Cholecalciferol (D-3) 1,000 UNIT (25MCG) TABLET PO SCH (08:51)
[2020-01-12] MEDS: *HR* Amiodarone 200 MG TABLET PO SCH (08:51)
[2020-01-12] MEDS: Multivit/Ca/Min/Fe/FA 1 TAB TABLET PO SCH (08:51)
[2020-01-12] MEDS: Furosemide 40 MG TABLET PO SCH (08:52)
[2020-01-12] MEDS: *HR* Rivaroxaban 10 MG TABLET PO SCH (16:57)
[2020-01-12] MEDS: Cefepime HCl 2,000 MG in Water for inj. (sterile) 20 ML IVP SCH (21:52)
[2020-01-12] MEDS: Mirtazapine 15 MG TABLET PO SCH (21:53)
[2020-01-13 07:42] LABS: Basophils # 0.1 K/mcL (0.0-0.2); Basophils % 0.5 %; Eosinophils # 0.2 K/mcL (0.0-0.6); Eosinophils % 1.5 %; Hematocrit 26.3 % (35.3-44.9); Hemoglobin 8.5 g/dL (11.5-15.4); Immature Granulocytes % 0.7 % (0-4); Lymphocytes # 0.7 K/mcL (0.6-4.6); Lymphocytes % 6.8 %; Mean Corpuscular HGB Conc 32.3 g/dL (31.6-35.5); Mean Corpuscular Hemoglobin 35.1 pg (28.0-33.3); Mean Corpuscular Volume 108.7 fL (83.0-100.0); Mean Platelet Volume 9.5 fL (9.4-12.4); Monocytes % 10.2 %; Neutrophils # 7.8 K/mcL (1.6-8.9); Platelet Count 341 K/mcL (140-400); Red Blood Count 2.42 M/mcL (3.82-4.97); Red Cell Distribution Width 14.6 % (11.5-14.5); Segmented Neutrophils % 80.3 %; White Blood Count 9.8 K/mcL (4.3-11.1)
[2020-01-13] MEDS: Furosemide 40 MG TABLET PO SCH (07:49)
[2020-01-13] MEDS: Cholecalciferol (D-3) 1,000 UNIT (25MCG) TABLET PO SCH (07:49)
[2020-01-13] MEDS: *HR* Amiodarone 200 MG TABLET PO SCH (07:49)
[2020-01-13] MEDS: Multivit/Ca/Min/Fe/FA 1 TAB TABLET PO SCH (07:49)
[2020-01-13 08:00] LABS: BUN/Creatinine Ratio 13 (6-26); Blood Urea Nitrogen 11 mg/dL (8-23); Calcium 8.7 mg/dL (8.6-10.3); Carbon Dioxide 25 mEq/L (23-29); Chloride 106 mEq/L (98-107); Glucose 90 mg/dL (70-105); Osmolality,Calculated 287 (280-300); Potassium 3.7 mEq/L (3.5-5.1); Sodium 139 mEq/L (136-145); eGFR For African Americans > 60 (> 60); eGFR For Non-African Americans > 60 (> 60)
[2020-01-13] MEDS: Cefepime HCl 2,000 MG in Water for inj. (sterile) 20 ML IVP SCH (08:55)
[2020-01-13 11:18] VITALS: BP 97/58
== END 2020-01-13 12:05 | disposition home or self-care (01) | DRG 871 ==
LOC: EMEROOARM 12:50 → 2ANU 12:50 → SUATTDRO 16:36 → 2ANU 17:42
PROVIDERS: ADMIT Internal Medicine; ATTEND Internal Medicine

== ENCOUNTER 2020-02-20 10:42 | Inpatient (IN) ==
[2020-02-20] MEDS ORDERED: methylPREDNISolone 125 MG/2 ML VIAL IVP ONE (10:58)
[2020-02-20] MEDS ORDERED: cefTRIAXone 1,000 MG in Water for inj. (sterile) 10 ML IVP ONE (10:58)
[2020-02-20] MEDS ORDERED: Azithromycin 250 MG TABLET PO ONE (10:58)
[2020-02-20] MEDS ORDERED: Ipratropium/Albuterol Neb 3 ML IH ONE (10:59)
[2020-02-20 11:32] LABS: Activated Partial Thrombo Time 38.1 Seconds (26.0-36.0)
[2020-02-20 11:35] LABS: INR 4.7; Prothrombin Time 52.6 Seconds (9.4-12.1)
[2020-02-20 11:38] LABS: Basophils # 0.1 K/mcL (0.0-0.2); Basophils % 0.9 %; Eosinophils # 0.1 K/mcL (0.0-0.6); Eosinophils % 0.6 %; Hematocrit 34.2 % (35.3-44.9); Hemoglobin 10.2 g/dL (11.5-15.4); Immature Granulocytes % 0.8 % (0-4); Lymphocytes # 0.6 K/mcL (0.6-4.6); Lymphocytes % 5.9 %; Mean Corpuscular HGB Conc 29.8 g/dL (31.6-35.5); Mean Corpuscular Hemoglobin 32.5 pg (28.0-33.3); Mean Corpuscular Volume 108.9 fL (83.0-100.0); Mean Platelet Volume 9.4 fL (9.4-12.4); Monocytes # 0.6 K/mcL (0.0-1.3); Monocytes % 5.6 %; Neutrophils # 8.9 K/mcL (1.6-8.9); Platelet Count 325 K/mcL (140-400); Red Blood Count 3.14 M/mcL (3.82-4.97); Red Cell Distribution Width 15.3 % (11.5-14.5); Segmented Neutrophils % 86.2 %; White Blood Count 10.3 K/mcL (4.3-11.1)
[2020-02-20 11:44] LABS: BUN/Creatinine Ratio 19 (6-26); Blood Urea Nitrogen 24 mg/dL (8-23); Calcium 9.4 mg/dL (8.6-10.3); Carbon Dioxide 23 mEq/L (23-29); Chloride 103 mEq/L (98-107); Glucose 129 mg/dL (70-105); Osmolality,Calculated 294 (280-300); Potassium 4.4 mEq/L (3.5-5.1); Sodium 139 mEq/L (136-145); eGFR For African Americans 49 (> 60); eGFR For Non-African Americans 41 (> 60)
[2020-02-20 11:45] LABS: Troponin I < 0.03 ng/mL (< 0.04)
[2020-02-20] MEDS ORDERED: 0.9 % Sodium Chloride 1,000 ML IVC SCH (12:00)
[2020-02-20] MEDS ORDERED: 0.9 % Sodium Chloride 1,000 ML ONE (12:01)
[2020-02-20 12:34] LABS: Amorphous Sediment,Urine Few per hpf (None-Few); Bilirubin,Urine Negative (Negative); Blood,Urine Negative (Negative); Clarity,Urine Turbid (Clear); Color,Urine Yellow (Yellow); Glucose,Urine (UA) Normal (Normal); Hyaline Casts,Urine Many per lpf (None Seen); Ketones,Urine Negative (Negative); Leukocyte Esterase,Urine Negative (Negative); Mucus,Urine Few per lpf (None-Few); Nitrite,Urine Negative (Negative); PH,Urine 6.5 pH Units (5.0-8.0); Protein,Urine >=300 mg/dL (Neg-Trace); Specific Gravity,Urine 1.021 (1.010-1.025); Squamous Epithelial Cell,Urine Few per hpf (None-Few)
[2020-02-20] MEDS ORDERED: Furosemide 40 MG in 0.9 % Sodium Chloride 50 ML IVPB ONE (13:07)
[2020-02-20] MEDS ORDERED: Furosemide 40 MG/4 ML VIAL IVP ONE (13:15)
[2020-02-20 14:22] LABS: Adenovirus Not Detected (Not Detect); Bordetella Pertussis Not Detected (Not Detect); Chlamydophila pneumoniae Not Detected (Not Detect); Coronavirus 229E Not Detected (Not Detect); Coronavirus HKU1 Not Detected (Not Detect); Coronavirus NL63 Not Detected (Not Detect); Coronavirus OC43 Not Detected (Not Detect); Human Metapneumovirus Not Detected (Not Detect); Human Rhinovirus/Enterovirus Not Detected (Not Detect); Influenza A Subtype 2009 H1 Not Detected (Not Detect); Influenza B Not Detected (Not Detect); Mycoplasma pneumoniae Not Detected (Not Detect); Parainfluenza Virus 1 Not Detected (Not Detect); Parainfluenza Virus 2 Not Detected (Not Detect); Parainfluenza Virus 3 Not Detected (Not Detect); Parainfluenza Virus 4 Not Detected (Not Detect); Respiratory Syncytial Virus Not Detected (Not Detect); SARS-CoV-2 Not Detected (Not Detect)
[2020-02-20] MEDS ORDERED: Naloxone 0.4 MG/ML INJ IVP PRN (14:48)
[2020-02-20] MEDS ORDERED: Acetaminophen 325 MG TABLET PO PRN (14:48)
[2020-02-20 15:36] LABS: Alanine Aminotransferase 14 Units/L (7-52); Albumin 3.8 g/dL (3.5-5.7); Albumin/Globulin Ratio 1.2 (1.1-2.2); Alkaline Phosphatase 91 Units/L (34-104); Aspartate Amino Transferase 32 Units/L (13-39); Bilirubin,Direct 0.3 mg/dL (0.0-0.2); Bilirubin,Indirect 0.8 mg/dL (0.0-1.0); Bilirubin,Total 1.1 mg/dL (0.3-1.0); Globulin 3.2 g/dL (2.4-3.5)
[2020-02-20] MEDS: Mirtazapine 15 MG TABLET PO SCH (19:29)
[2020-02-21] MEDS: Multivit/Ca/Min/Fe/FA 1 TAB TABLET PO SCH (08:05)
[2020-02-21] MEDS: predniSONE 20 MG TABLET PO SCH (08:05)
[2020-02-21] MEDS: Furosemide 40 MG TABLET PO SCH (08:05)
[2020-02-21] MEDS: *HR* Amiodarone 200 MG TABLET PO SCH (08:05)
[2020-02-21] MEDS: Budesonide/Formoterol 160/4.5 1 PUFF INH IH SCH ×2 (08:07→20:02)
[2020-02-21] MEDS: Tiotropium 10 INH DOSE IH SCH (08:09)
[2020-02-21] MEDS ORDERED: *HR* Rivaroxaban 15 MG TABLET PO SCH (09:00)
[2020-02-21] MEDS ORDERED: NON-FORMULARY MEDICATION 1 EACH EACH (Fluticasone/Umeclidin/Vilanter [Trelegy Ellipta 100- IH SCH (09:00)
[2020-02-21 10:28] LABS: Basophils % 0.1 %; Hematocrit 30.3 % (35.3-44.9); Hemoglobin 9.4 g/dL (11.5-15.4); Immature Granulocytes % 0.7 % (0-4); Lymphocytes # 0.3 K/mcL (0.6-4.6); Lymphocytes % 2.8 %; Mean Corpuscular Hemoglobin 33.3 pg (28.0-33.3); Mean Corpuscular Volume 107.4 fL (83.0-100.0); Mean Platelet Volume 9.4 fL (9.4-12.4); Monocytes # 0.7 K/mcL (0.0-1.3); Monocytes % 6.8 %; Neutrophils # 9.6 K/mcL (1.6-8.9); Platelet Count 299 K/mcL (140-400); Red Blood Count 2.82 M/mcL (3.82-4.97); Red Cell Distribution Width 14.9 % (11.5-14.5); Segmented Neutrophils % 89.6 %; White Blood Count 10.7 K/mcL (4.3-11.1)
[2020-02-21 10:38] LABS: INR 2.1; Prothrombin Time 23.4 Seconds (9.4-12.1)
[2020-02-21 10:54] LABS: Albumin 3.5 g/dL (3.5-5.7); Albumin/Globulin Ratio 1.2 (1.1-2.2); Bilirubin,Total 0.7 mg/dL (0.3-1.0); Calcium 9.4 mg/dL (8.6-10.3); Globulin 2.9 g/dL (2.4-3.5); Potassium 4.2 mEq/L (3.5-5.1); Total Protein 6.4 g/dL (6.4-8.9)
[2020-02-21] MEDS: *HR* Rivaroxaban 15 MG TABLET PO SCH (16:43)
[2020-02-21] MEDS: Mirtazapine 15 MG TABLET PO SCH (20:43)
[2020-02-22 06:37] LABS: Basophils % 0.1 %; Hematocrit 31.1 % (35.3-44.9); Hemoglobin 9.7 g/dL (11.5-15.4); Immature Granulocytes % 0.8 % (0-4); Lymphocytes # 0.6 K/mcL (0.6-4.6); Lymphocytes % 4.2 %; Mean Corpuscular HGB Conc 31.2 g/dL (31.6-35.5); Mean Corpuscular Hemoglobin 33.8 pg (28.0-33.3); Mean Corpuscular Volume 108.4 fL (83.0-100.0); Mean Platelet Volume 9.3 fL (9.4-12.4); Monocytes # 1.2 K/mcL (0.0-1.3); Monocytes % 8.6 %; Neutrophils # 12.2 K/mcL (1.6-8.9); Platelet Count 286 K/mcL (140-400); Red Blood Count 2.87 M/mcL (3.82-4.97); Red Cell Distribution Width 15.1 % (11.5-14.5); Segmented Neutrophils % 86.3 %; White Blood Count 14.1 K/mcL (4.3-11.1)
[2020-02-22 06:59] LABS: Calcium 9.4 mg/dL (8.6-10.3); Potassium 4.5 mEq/L (3.5-5.1)
[2020-02-22] MEDS: predniSONE 20 MG TABLET PO SCH (07:50)
[2020-02-22] MEDS: *HR* Amiodarone 200 MG TABLET PO SCH (07:50)
[2020-02-22] MEDS: Multivit/Ca/Min/Fe/FA 1 TAB TABLET PO SCH (07:50)
[2020-02-22] MEDS: Furosemide 40 MG TABLET PO SCH (07:50)
[2020-02-22] MEDS: Budesonide/Formoterol 160/4.5 1 PUFF INH IH SCH ×2 (10:35→22:54)
[2020-02-22] MEDS: Tiotropium 10 INH DOSE IH SCH (10:58)
[2020-02-22] MEDS: *HR* Rivaroxaban 15 MG TABLET PO SCH (16:43)
[2020-02-22] MEDS: Mirtazapine 15 MG TABLET PO SCH (21:01)
[2020-02-23 06:08] LABS: Basophils % 0.1 %; Hematocrit 29.6 % (35.3-44.9); Hemoglobin 9.1 g/dL (11.5-15.4); Immature Granulocytes % 0.7 % (0-4); Lymphocytes # 0.6 K/mcL (0.6-4.6); Lymphocytes % 4.9 %; Mean Corpuscular HGB Conc 30.7 g/dL (31.6-35.5); Mean Corpuscular Hemoglobin 33.3 pg (28.0-33.3); Mean Corpuscular Volume 108.4 fL (83.0-100.0); Mean Platelet Volume 9.4 fL (9.4-12.4); Monocytes # 1.1 K/mcL (0.0-1.3); Monocytes % 9.4 %; Neutrophils # 9.7 K/mcL (1.6-8.9); Platelet Count 272 K/mcL (140-400); Red Blood Count 2.73 M/mcL (3.82-4.97); Red Cell Distribution Width 14.9 % (11.5-14.5); Segmented Neutrophils % 84.9 %; White Blood Count 11.4 K/mcL (4.3-11.1)
[2020-02-23 06:27] LABS: Potassium 4.3 mEq/L (3.5-5.1)
[2020-02-23] MEDS: predniSONE 20 MG TABLET PO SCH (09:09)
[2020-02-23] MEDS: Multivit/Ca/Min/Fe/FA 1 TAB TABLET PO SCH (09:09)
[2020-02-23] MEDS: *HR* Amiodarone 200 MG TABLET PO SCH (09:09)
[2020-02-23] MEDS: Budesonide/Formoterol 160/4.5 1 PUFF INH IH SCH ×2 (11:07→20:16)
[2020-02-23] MEDS: Tiotropium 10 INH DOSE IH SCH (11:07)
[2020-02-23] MEDS: *HR* Rivaroxaban 15 MG TABLET PO SCH (16:16)
[2020-02-23] MEDS: Mirtazapine 15 MG TABLET PO SCH (20:08)
[2020-02-23 22:34] LABS: Bilirubin,Urine Negative (Negative); Blood,Urine Negative (Negative); Clarity,Urine Clear (Clear); Color,Urine Yellow (Yellow); Glucose,Urine (UA) Normal (Normal); Hyaline Casts,Urine Few per lpf (None Seen); Ketones,Urine Negative (Negative); Leukocyte Esterase,Urine Negative (Negative); Mucus,Urine Few per lpf (None-Few); Nitrite,Urine Negative (Negative); Protein,Urine 30 mg/dL (Neg-Trace); Specific Gravity,Urine 1.022 (1.010-1.025); Squamous Epithelial Cell,Urine Few per hpf (None-Few); Urobilinogen,Urine Normal (Normal); WBC,Urine 0-3 per hpf (0-3)
[2020-02-23 23:39] LABS: Protein/Creatinine Ratio,Urine 0.61 mg/mg (0.00-0.20); Sodium, Urine 34.1 mEq/L
[2020-02-24 07:29] VITALS: BP 159/96
[2020-02-24 07:45] LABS: Basophils % 0.1 %; Eosinophils % 0.1 %; Hematocrit 32.8 % (35.3-44.9); Immature Granulocytes % 0.7 % (0-4); Lymphocytes # 0.7 K/mcL (0.6-4.6); Lymphocytes % 5.5 %; Mean Corpuscular HGB Conc 30.5 g/dL (31.6-35.5); Mean Corpuscular Hemoglobin 32.6 pg (28.0-33.3); Mean Corpuscular Volume 106.8 fL (83.0-100.0); Mean Platelet Volume 9.3 fL (9.4-12.4); Monocytes # 1.2 K/mcL (0.0-1.3); Neutrophils # 10.2 K/mcL (1.6-8.9); Platelet Count 315 K/mcL (140-400); Red Blood Count 3.07 M/mcL (3.82-4.97); Red Cell Distribution Width 14.8 % (11.5-14.5); Segmented Neutrophils % 83.6 %; White Blood Count 12.2 K/mcL (4.3-11.1)
[2020-02-24] MEDS: predniSONE 20 MG TABLET PO SCH (07:51)
[2020-02-24] MEDS: *HR* Amiodarone 200 MG TABLET PO SCH (07:51)
[2020-02-24] MEDS: Multivit/Ca/Min/Fe/FA 1 TAB TABLET PO SCH (07:51)
[2020-02-24 08:07] LABS: Calcium 9.3 mg/dL (8.6-10.3); Potassium 3.9 mEq/L (3.5-5.1)
[2020-02-24] MEDS: Furosemide 40 MG TABLET PO SCH (09:26)
== END 2020-02-24 11:00 | disposition home health service (06) | DRG 292 ==
LOC: EMEROOARM 10:42 → 2ANU 10:42
PROVIDERS: ADMIT Internal Medicine; ATTEND Internal Medicine

== ENCOUNTER 2020-03-08 13:47 | Observation (INO) ==
[2020-03-08 14:51] LABS: Basophils # 0.1 K/mcL (0.0-0.2); Basophils % 0.5 %; Eosinophils # 0.1 K/mcL (0.0-0.6); Eosinophils % 0.7 %; Hematocrit 36.8 % (35.3-44.9); Hemoglobin 10.9 g/dL (11.5-15.4); Immature Granulocytes % 1.4 % (0-4); Lymphocytes # 0.9 K/mcL (0.6-4.6); Lymphocytes % 6.9 %; Mean Corpuscular HGB Conc 29.6 g/dL (31.6-35.5); Mean Corpuscular Hemoglobin 31.9 pg (28.0-33.3); Mean Corpuscular Volume 107.6 fL (83.0-100.0); Mean Platelet Volume 9.3 fL (9.4-12.4); Monocytes % 7.4 %; Neutrophils # 11.1 K/mcL (1.6-8.9); Platelet Count 275 K/mcL (140-400); Red Blood Count 3.42 M/mcL (3.82-4.97); Red Cell Distribution Width 15.4 % (11.5-14.5); Segmented Neutrophils % 83.1 %; White Blood Count 13.3 K/mcL (4.3-11.1)
[2020-03-08 14:57] LABS: INR 3.6; Prothrombin Time 40.4 Seconds (9.4-12.1)
[2020-03-08] MEDS ORDERED: Furosemide 40 MG/4 ML VIAL IVP ONE (15:00)
[2020-03-08 15:20] LABS: Calcium 9.1 mg/dL (8.6-10.3); Potassium 4.6 mEq/L (3.5-5.1); Troponin I 0.05 ng/mL (< 0.04)
[2020-03-08] MEDS ORDERED: Naloxone 0.4 MG/ML INJ IVP PRN (17:18)
[2020-03-08] MEDS: Budesonide/Formoterol 160/4.5 1 PUFF INH IH SCH (20:00)
[2020-03-08] MEDS: Mirtazapine 15 MG TABLET PO SCH (20:15)
[2020-03-09 05:27] LABS: Basophils % 0.4 %; Eosinophils # 0.1 K/mcL (0.0-0.6); Eosinophils % 0.6 %; Hematocrit 30.7 % (35.3-44.9); Hemoglobin 9.6 g/dL (11.5-15.4); Immature Granulocytes % 0.8 % (0-4); Lymphocytes # 0.7 K/mcL (0.6-4.6); Lymphocytes % 7.1 %; Mean Corpuscular HGB Conc 31.3 g/dL (31.6-35.5); Mean Corpuscular Hemoglobin 32.8 pg (28.0-33.3); Mean Corpuscular Volume 104.8 fL (83.0-100.0); Mean Platelet Volume 9.6 fL (9.4-12.4); Monocytes # 0.7 K/mcL (0.0-1.3); Monocytes % 7.2 %; Neutrophils # 8.1 K/mcL (1.6-8.9); Platelet Count 238 K/mcL (140-400); Red Blood Count 2.93 M/mcL (3.82-4.97); Red Cell Distribution Width 15.2 % (11.5-14.5); Segmented Neutrophils % 83.9 %; White Blood Count 9.7 K/mcL (4.3-11.1)
[2020-03-09 05:46] LABS: Chol/HDL Ratio 3.2 (0-4.9)
[2020-03-09 05:50] LABS: Calcium 8.9 mg/dL (8.6-10.3); Potassium 4.1 mEq/L (3.5-5.1)
[2020-03-09] MEDS: amLODIPine 5 MG TABLET PO SCH (07:38)
[2020-03-09] MEDS: *HR* Amiodarone 200 MG TABLET PO SCH (07:39)
[2020-03-09] MEDS: Furosemide 40 MG/4 ML VIAL IVP SCH ×2 (07:40→21:30)
[2020-03-09] MEDS ORDERED: *HR* Rivaroxaban 10 MG TABLET PO SCH (09:00)
[2020-03-09] MEDS ORDERED: Famotidine 20 MG TABLET PO SCH (09:00)
[2020-03-09] MEDS: Budesonide/Formoterol 160/4.5 1 PUFF INH IH SCH ×2 (10:58→20:02)
[2020-03-09] MEDS: Mirtazapine 15 MG TABLET PO SCH (21:29)
[2020-03-09] MEDS: *HR* Rivaroxaban 15 MG TABLET PO SCH (21:29)
[2020-03-10 05:48] LABS: Basophils % 0.4 %; Eosinophils # 0.1 K/mcL (0.0-0.6); Eosinophils % 0.5 %; Hemoglobin 9.8 g/dL (11.5-15.4); Immature Granulocytes % 0.9 % (0-4); Lymphocytes # 0.7 K/mcL (0.6-4.6); Lymphocytes % 6.2 %; Mean Corpuscular HGB Conc 30.6 g/dL (31.6-35.5); Mean Corpuscular Hemoglobin 32.2 pg (28.0-33.3); Mean Corpuscular Volume 105.3 fL (83.0-100.0); Mean Platelet Volume 9.7 fL (9.4-12.4); Monocytes # 0.8 K/mcL (0.0-1.3); Monocytes % 6.9 %; Neutrophils # 9.7 K/mcL (1.6-8.9); Platelet Count 238 K/mcL (140-400); Red Blood Count 3.04 M/mcL (3.82-4.97); Red Cell Distribution Width 15.2 % (11.5-14.5); Segmented Neutrophils % 85.1 %; White Blood Count 11.4 K/mcL (4.3-11.1)
[2020-03-10 06:10] LABS: Potassium 4.2 mEq/L (3.5-5.1)
[2020-03-10] MEDS: Famotidine 20 MG TABLET PO SCH (08:13)
[2020-03-10] MEDS: amLODIPine 5 MG TABLET PO SCH (08:14)
[2020-03-10] MEDS: *HR* Amiodarone 200 MG TABLET PO SCH (08:15)
[2020-03-10] MEDS: Furosemide 40 MG/4 ML VIAL IVP SCH (08:19)
[2020-03-10] MEDS: Budesonide/Formoterol 160/4.5 1 PUFF INH IH SCH ×2 (11:06→19:50)
[2020-03-10] MEDS: *HR* Rivaroxaban 15 MG TABLET PO SCH (20:54)
[2020-03-10] MEDS: Mirtazapine 15 MG TABLET PO SCH (20:54)
[2020-03-11 05:23] LABS: Basophils # 0.1 K/mcL (0.0-0.2); Basophils % 0.5 %; Eosinophils # 0.1 K/mcL (0.0-0.6); Hematocrit 32.9 % (35.3-44.9); Hemoglobin 10.2 g/dL (11.5-15.4); Lymphocytes # 0.8 K/mcL (0.6-4.6); Lymphocytes % 8.1 %; Mean Corpuscular Hemoglobin 32.6 pg (28.0-33.3); Mean Corpuscular Volume 105.1 fL (83.0-100.0); Mean Platelet Volume 9.6 fL (9.4-12.4); Monocytes # 0.7 K/mcL (0.0-1.3); Monocytes % 6.9 %; Neutrophils # 8.6 K/mcL (1.6-8.9); Platelet Count 246 K/mcL (140-400); Red Blood Count 3.13 M/mcL (3.82-4.97); Red Cell Distribution Width 15.3 % (11.5-14.5); Segmented Neutrophils % 82.5 %; White Blood Count 10.4 K/mcL (4.3-11.1)
[2020-03-11 05:38] LABS: Calcium 9.1 mg/dL (8.6-10.3); Potassium 4.2 mEq/L (3.5-5.1)
[2020-03-11] MEDS: Budesonide/Formoterol 160/4.5 1 PUFF INH IH SCH ×2 (07:38→19:40)
[2020-03-11] MEDS: Famotidine 20 MG TABLET PO SCH (08:43)
[2020-03-11] MEDS: *HR* Amiodarone 200 MG TABLET PO SCH (08:44)
[2020-03-11] MEDS: Furosemide 40 MG/4 ML VIAL IVP SCH (08:44)
[2020-03-11] MEDS: amLODIPine 5 MG TABLET PO SCH (08:44)
[2020-03-11] MEDS: Furosemide 40 MG TABLET PO SCH (17:17)
[2020-03-11] MEDS: Mirtazapine 15 MG TABLET PO SCH (20:35)
[2020-03-11] MEDS: *HR* Rivaroxaban 15 MG TABLET PO SCH (20:35)
[2020-03-12 05:48] LABS: Basophils % 0.5 %; Eosinophils # 0.1 K/mcL (0.0-0.6); Eosinophils % 1.1 %; Hematocrit 30.4 % (35.3-44.9); Hemoglobin 9.4 g/dL (11.5-15.4); Immature Granulocytes % 0.6 % (0-4); Lymphocytes # 0.7 K/mcL (0.6-4.6); Lymphocytes % 7.7 %; Mean Corpuscular HGB Conc 30.9 g/dL (31.6-35.5); Mean Corpuscular Hemoglobin 32.2 pg (28.0-33.3); Mean Corpuscular Volume 104.1 fL (83.0-100.0); Mean Platelet Volume 9.5 fL (9.4-12.4); Monocytes # 0.7 K/mcL (0.0-1.3); Monocytes % 7.6 %; Neutrophils # 7.3 K/mcL (1.6-8.9); Platelet Count 224 K/mcL (140-400); Red Blood Count 2.92 M/mcL (3.82-4.97); Red Cell Distribution Width 14.9 % (11.5-14.5); Segmented Neutrophils % 82.5 %; White Blood Count 8.8 K/mcL (4.3-11.1)
[2020-03-12 06:06] LABS: Calcium 8.5 mg/dL (8.6-10.3); Potassium 3.8 mEq/L (3.5-5.1)
[2020-03-12 07:02] VITALS: BP 114/76
[2020-03-12] MEDS: Budesonide/Formoterol 160/4.5 1 PUFF INH IH SCH (08:05)
[2020-03-12] MEDS: amLODIPine 5 MG TABLET PO SCH (09:00)
[2020-03-12] MEDS: Furosemide 40 MG TABLET PO SCH (09:00)
[2020-03-12] MEDS ORDERED: Famotidine 20 MG TABLET PO SCH (09:00)
[2020-03-12] MEDS: *HR* Amiodarone 200 MG TABLET PO SCH (09:00)
== END 2020-03-12 11:55 | disposition home or self-care (01) ==
LOC: EMEROOARM 13:47 → 3BNU 13:47 → SUATTDRO 18:10 → 3BNU 19:37
PROVIDERS: ADMIT Internal Medicine; ATTEND Internal Medicine